=== PATIENT | female | born 1985 | race Caucasian/White ===

== ENCOUNTER 2018-01-02 15:48 | Emergency (ER) | payer OTHER ==
[2018-01-02 15:59] VITALS: BP 106/58; PULSE 130; BMI 22.1
[2018-01-02] MEDS ORDERED: ACETAMINOPHEN 325 MG TABLET (FP) PO ONE (15:59)
[2018-01-02] MEDS ORDERED: IBUPROFEN 400 MG TABLET (FP) PO ONE ×2 (17:29→17:43)
--- NOTE | 2018-01-02 17:30 | PDOC ---
History of Present Illness - General Chief Complaint: Respiratory Stated Complaint: COUGHING, BODYACHES Time Seen by Provider: 01/02/18 17:21 History Source: Patient Exam Limitations: No Limitations - History of Present Illness Initial Comments: 01/02/18 17:27 Patient is a [32-year-old female, no significant medical history currently on no medication presents with fever, headache, bodyaches since Wednesday. Has only attempted to take TheraFlu. No vomiting, no diarrhea no chest pain or shortness of breath.] Past Medical History: [Denies]. Allergies: No known allergies Medications: [None] Family History: Non-contributory Social History: Denies smoking, alcohol use, or IVDU Review of Systems GENERAL/CONSTITUTIONAL: [Fever, bodyaches. No weakness. No weight change.] HEAD, EYES, EARS, NOSE AND THROAT: [No change in vision. No ear pain or discharge. No sore throat. ] CARDIOVASCULAR: [No chest pain or shortness of breath.] RESPIRATORY: [Nonproductive cough, no wheezing, or hemoptysis.] GASTROINTESTINAL: [No nausea, vomiting, diarrhea or constipation. No rectal bleeding.] GENITOURINARY: [No dysuria, frequency, or change in urination.] MUSCULOSKELETAL: [No joint or muscle swelling or pain. No neck or back pain.] SKIN AND BREASTS: [No rash or easy bruising.] NEUROLOGIC: [Frontal headache, vertigo, loss of consciousness, or loss of sensation.] PSYCHIATRIC: [No depression or anxiety.] ENDOCRINE: [No increased thirst. No abnormal weight change.] HEMATOLOGIC/LYMPHATIC: [No anemia, easy bleeding, or history of blood clots.] ALLERGIC/IMMUNOLOGIC: [No hives or skin allergy. No latex allergy.] Physical Exam: GENERAL: [The patient is awake, alert, and fully oriented, in no acute distress. ] HEAD: [Normal with no signs of trauma.] EYES: [Pupils equal, round and reactive to light, extraocular movements intact, sclera anicteric, conjunctiva clear.] ENT: [Ears normal, nares patent, oropharynx clear without exudates. Moist mucous membranes. No uvula deviation] NECK: [Normal range of motion, supple without lymphadenopathy, JVD, or masses.] LUNGS: [Breath sounds equal, clear to auscultation bilaterally. No wheezes, and no crackles.] HEART: [Regular rate and rhythm, normal S1 and S2 without murmur, rub or gallop. ] ABDOMEN: [Soft, nontender, normoactive bowel sounds. No guarding, no rebound. No masses. No bruising or abrasions] MUSCULOSKELETAL: [Normal range of motion, no edema. No clubbing or cyanosis. No cords, erythema, or tenderness. No CVA Tenderness with fist.] NEUROLOGICAL: [Cranial nerves II through XII grossly intact. Normal speech, normal gait.] SKIN: [Warm, Dry, normal turgor, no rashes or lesions noted.] Past History - Past Medical History Allergies/Adverse Reactions: Allergies Allergy/AdvReac Type Severity Reaction Status Date / Time No Known Allergies Allergy Verified 01/02/18 15:55 Home Medications: Ambulatory Orders Oseltamivir Phosphate [Tamiflu -] 75 mg PO BID #10 capsule 01/02/18 Asthma: No Cancer: No Cardiac Disorders: No COPD: No Diabetes: No HTN: No Seizures: No Thyroid Disease: No - Immunization History Immunization Up to Date: Yes - Suicide/Smoking/Psychosocial Hx Smoking History: Never smoked Have you smoked in the past 12 months: No Hx Alcohol Use: No Drug/Substance Use Hx: No Substance Use Type: None Hx Substance Use Treatment: No *Physical Exam - Vital Signs Last Vital Signs Temp Pulse Resp BP Pulse Ox 103.0 F H 130 H 24 106/58 100 01/02/18 15:50 01/02/18 15:50 01/02/18 15:50 01/02/18 15:50 01/02/18 15:50 ED Treatment Course - Medications Given in the ED: ED Medications Discontinued Medications Generic Name Dose Route Start Last Admin Trade Name Newq PRN Reason Stop Dose Admin Acetaminophen 975 mg 01/02/18 15:59 01/02/18 16:01 Tylenol - PO 01/02/18 16:00 975 mg NOW ONE Administration Medical Decision Making - Medical Decision Making 01/02/18 17:29 A/P: Patient with influenza-type illness, rapid influenza sent her Tylenol was given in triage. 01/02/18 18:03 Patient is influenza A positive we'll discharge on Tamiflu, Motrin as needed for fever, increase fluids to prevent dehydration I discussed the physical exam findings, ancillary test results and final diagnoses with the patient. I answered all of the patient's questions. The patient was satisfied with the care received and felt comfortable with the discharge plan and treatment plan. The patient will call to arrange follow-up and will return to the Emergency Department with any new, persistent or worsening symptoms. *DC/Admit/Observation/Transfer Diagnosis at time of Disposition: Influenza A - Discharge Dispostion Disposition: HOME Condition at time of disposition: Stable Admit: No - Prescriptions Prescriptions: Oseltamivir Phosphate [Tamiflu -] 75 mg PO BID #10 capsule - Referrals Referrals: John Marcus MD [Staff Physician] - - Patient Instructions Printed Discharge Instructions: Influenza Additional Instructions: You have been diagnosed with influenza a. Please take the medication as directed. Please take Motrin or Tylenol as needed for fever. Make sure to stay well-hydrated. Drink a lot of water or Gatorade or Pedialyte. You are contagious. Please attempt to avoid contact of multiple individuals as this will cause the infection to spread. Return to emergency room if shortness of breath, wheezing, fever greater than 101, chest pain, or fainting occurs. - Post Discharge Activity Forms/Work/School Notes: Back to Work
[2018-01-02 17:50] VITALS: TEMP 98.8
== END 2018-01-02 18:11 | disposition home or self-care (01) ==
LOC: JERFT 15:48
DX: J09.X2 Influenza due to identified novel influenza A virus with other respiratory manifestations (principal)
CPT/HCPCS: 87804; 99281-25

== ENCOUNTER 2018-01-07 17:10 | Emergency (ER) | payer OTHER ==
[2018-01-07 17:16] VITALS: TEMP 98.8; BMI 22.1
--- NOTE | 2018-01-07 17:19 | PDOC ---
Rapid Medical Evaluation Chief Complaint: Cold Symptoms Time Seen by Provider: 01/07/18 17:14 Medical Evaluation: Allergies Allergy/AdvReac Type Severity Reaction Status Date / Time No Known Allergies Allergy Verified 01/07/18 17:11 I have performed a brief in-person evaluation of this patient. The patient presents with a chief complaint of: flu like symptoms. Patient was seen here 2/, diagnosed with flu, completed tamiflu. She states she feels just as bad with continued cough, sore throat, [place] and body aches. Nasal congestion. Runny nose of dark green mucous. Pertinent physical exam findings: Tenderness to palpation of sinuses. Lungs CTA. hoarse voice. dry cough. Patient is ill appearing. I have ordered the following: nothing The patient will proceed to the ED for further evaluation.
[2018-01-07] MEDS ORDERED: IBUPROFEN 400 MG TABLET (FP) PO ONE ×2 (19:35→19:50)
--- NOTE | 2018-01-07 19:44 | PDOC ---
History of Present Illness <Eliud Saini - Last Filed: 01/07/18 20:29> - General History Source: Patient Exam Limitations: No Limitations - History of Present Illness Initial Comments: 01/07/18 20:16 Patient is a 32 year old female with no significant past medical history who presents to the ED with complaints of flu like symptoms that began 5 days ago. Patient reports experiencing flu like symptoms 5 days ago suddenly, and was seen in the ED for further evaluation. She reports being prescribed tamiflu and was discharged home. Patient reports finishing tamiflu prescription last night and states I feel worse than when i started the medicine. She reports experiencing persistent cough/congestion and general body aches. Patient reports taking tylenol and motrin this afternoon with minimal relief, prompting her to come into the ED today for secondary evaluation. She reports her experiencing similar symptoms, as well as both of her kids experiencing coughing symptoms. Denies chest pain, Sob, hemoptysis, leg swelling, kaur, Denies out of state travelling. Denies diarrhea, constipation, dysuria, hematuria. Denies any other symptoms. Allergies: None Social history: Lives with and children. No smoking. No alcohol. No illicit drugs. Surgical history: None PMD: Dr. Susie Garcia <Jomar Licona - Last Filed: 01/08/18 07:00> - General Chief Complaint: Cold Symptoms Stated Complaint: COLD SYMPTOMS Time Seen by Provider: 01/07/18 17:14 Past History - Past Medical History Asthma: No Cancer: No Cardiac Disorders: No COPD: No Diabetes: No HTN: No Seizures: No Thyroid Disease: No - Immunization History Immunization Up to Date: Yes - Suicide/Smoking/Psychosocial Hx Smoking History: Never smoked Have you smoked in the past 12 months: No Information on smoking cessation initiated: No Hx Alcohol Use: No Drug/Substance Use Hx: No Substance Use Type: None Hx Substance Use Treatment: No <Eliud Saini - Last Filed: 01/07/18 20:29> <Jomar Licona - Last Filed: 01/08/18 07:00> - Past Medical History Allergies/Adverse Reactions: Allergies Allergy/AdvReac Type Severity Reaction Status Date / Time No Known Allergies Allergy Verified 01/07/18 17:11 Home Medications: Ambulatory Orders Oseltamivir Phosphate [Tamiflu -] 75 mg PO BID #10 capsule 01/02/18 Azithromycin [Zithromax -] 250 mg PO DAILY #6 tab 01/07/18 Benzonatate [Tessalon Pearls -] 100 mg PO TID PRN #6 capsule 01/07/18 Pseudoephedrine HCl [Sudafed 12 Hour] 120 mg PO BID PRN #8 tablet.er 01/07/18 Review of Systems - Review of Systems Able to Perform ROS?: Yes Comments:: 01/07/18 20:16 CONSTITUTIONAL: +General body aches. No reported: Fever, Chills, Diaphoresis, Generalized Weakness, Malaise, Loss of Appetite HEENT: No reported: +Nasal congestion Rhinorrhea, Throat Pain, Throat Swelling, Difficulty Swallowing, Mouth Swelling , Ear Pain, Eye Pain, Visual Changes CARDIOVASCULAR: No reported: Chest Pain, Syncope, Palpitations, Irregular Heart Rate, Lightheadedness, Peripheral Edema RESPIRATORY: +Coughing . No reported: Shortness of Breath, SOB with Exertion, Orthopnea, Wheezing, Stridor, Hemoptysis GASTROINTESTINAL: +Nausea, vomiting. No reported: Abdominal pain, Abdominal Distension, Diarrhea, Constipation, Melena, Hematochezia GENITOURINARY: No reported: Dysuria, Frequency, Urgency, Hesitancy, Flank Pain, Genital Pain MUSCULOSKELETAL: No reported: Myalgia, Arthralgia, Joint Swelling, Back pain, Neck Pain SKIN: No reported: Rash, Itching, Pallor HEMATOLOGIC/IMMUNOLOGIC: No reported: Easy Bleeding, Easy Bruising, Lymphadenopathy, Frequent infections ENDOCRINE: No reported: Unexplained Weight Gain, Unexplained Weight Loss, Heat Intolerance , Cold Intolerance NEUROLOGIC: No reported: Headache, Focal Weakness, Paresthesias, Vertigo, Lightheadedness, Unsteady Gait, Seizure, Mental Status Changes, Incontinence PSYCHIATRIC: No reported: Anxiety, Depression All Other Systems: Reviewed and Negative <Jomar Licona - Last Filed: 01/08/18 07:00> *Physical Exam - Vital Signs Last Vital Signs Temp Pulse Resp BP Pulse Ox 98.8 F 90 18 104/57 100 01/07/18 17:11 01/07/18 17:11 01/07/18 17:11 01/07/18 17:11 01/07/18 17:11 <Eliud Saini - Last Filed: 01/07/18 20:29> - Vital Signs Last Vital Signs Temp Pulse Resp BP Pulse Ox 98.8 F 90 18 104/57 100 01/07/18 17:11 01/07/18 17:11 01/07/18 17:11 01/07/18 17:11 01/07/18 17:11 - Physical Exam Comments: 01/07/18 20:16 GENERAL: The patient is awake, alert, and fully oriented, Nontoxic - in no acute distress. HEAD: Normocephalic, atraumatic. EYES: extraocular movements intact, sclera anicteric, conjunctiva clear. ENT: +Mildly injected pharynx. No exudates. Normal voice, Moist mucous membranes. NECK: Normal range of motion, No JVD LUNGS: +Mild scant rales at bases bilarterally. Breath sounds equal, clear to auscultation bilaterally. No wheezes, no rhonchi, no rales. HEART: Regular rate and rhythm, normal S1 and S2 without murmur, rub or gallop. ABDOMEN: Soft, nontender, normoactive bowel sounds. No guarding, no rebound. No masses. No CVA tenderness EXTREMITIES: Normal range of motion, no edema. No clubbing or cyanosis. No cords , erythema, or tenderness. NEUROLOGICAL: No facial asymmetry, Normal speech, normal gait. PSYCH: Normal mood, normal affect. SKIN: ho tto touch, Dry, normal turgor. <Jomar Licona - Last Filed: 01/08/18 07:00> ED Treatment Course - RADIOLOGY Radiology Studies Ordered: Category Date Time Status CHEST PA & LAT [RAD] Stat Radiology 01/07/18 19:34 Ordered <Eliud Saini - Last Filed: 01/07/18 20:29> - ADDITIONAL ORDERS Additional order review: Laboratory Results 01/07/18 19:42 Urine Color Dkyellow Urine Appearance Clear Urine pH 7.0 Ur Specific [place] 1.021 Urine Protein 1+ H Urine Glucose (UA) Negative Urine Ketones 1+ H Urine Blood 2+ H Urine Nitrite Negative Urine Bilirubin Negative Urine Urobilinogen 4.0 e.u/dl H Ur Leukocyte Esterase Negative Urine WBC (Auto) 2 Urine RBC (Auto) 1 Ur Epithelial Cells Rare Urine Mucus Few Urine HCG, Qual Negative - Medications Given in the ED: ED Medications Discontinued Medications Generic Name Dose Route Start Last Admin Trade Name Jaime PRN Reason Stop Dose Admin Ibuprofen 400 mg 01/07/18 19:35 01/07/18 19:52 Motrin - PO 01/07/18 19:36 400 mg ONCE ONE Administration <Jomar Licona - Last Filed: 01/08/18 07:00> Medical Decision Making - Medical Decision Making 01/07/18 19:39 32y F no pmhx with recent hx of flu (dx here in the ED) completed a course of tamiflu, represents today for persistence of symptoms (sore throat, body aches, cough productive of greenish sputum), nasal congestion, denies edema, kaur, cp, back pain will obtain cxr to r/o suprinfection w/ pna supportive care includint lizzy hills tessalon perles, <Eliud Saini - Last Filed: 01/07/18 20:29> *DC/Admit/Observation/Transfer - Discharge Dispostion Admit: No <Eliud Saini - Last Filed: 01/07/18 20:29> - Attestations Scribe Attestion: 01/07/18 20:17 Documentation prepared by Jomar Licona, acting as healthcare or medical for Eliud Saini MD, MD/DO. <Jomar Licona - Last Filed: 01/08/18 07:00> Diagnosis at time of Disposition: Influenza A - Discharge Dispostion Disposition: HOME Condition at time of disposition: Stable - Prescriptions Prescriptions: Azithromycin [Zithromax -] 250 mg PO DAILY #6 tab Benzonatate [Tessalon Pearls -] 100 mg PO TID PRN #6 capsule PRN Reason: Cough Pseudoephedrine HCl [Sudafed 12 Hour] 120 mg PO BID PRN #8 tablet.er PRN Reason: Nasal Congestion - Referrals Referrals: Susie Garcia MD [Primary Care Provider] - [facility] [place] [facility] [Provider Group] - 2 Days - Patient Instructions Printed Discharge Instructions: DI for Viral Upper Respiratory Infection -- Adult, DI for Influenza -- Adult Additional Instructions: Return to the emergency department immediately with ANY new, persistent or worsening symptoms. Take ibuprofen/tylenol for fever. Make sure to drink plenty of fluids. You MUST call and follow up with your doctor tomorrow for further evaluation of your symptoms. Results were discussed with you. Please make sure your doctor reviews the results of your emergency evaluation. - Post Discharge Activity
[2018-01-07 19:55] LABS: HCG,QUALITATIVE URINE NEGATIVE; URINE APPEARANCE CLEAR; URINE BILIRUBIN NEGATIVE (NEGATIVE); URINE BLOOD 2+ (NEGATIVE); URINE COLOR DKYELLOW; URINE GLUCOSE (UA) NEGATIVE (NEGATIVE); URINE KETONE 1+ (NEGATIVE); URINE LEUK ESTERASE NEGATIVE (NEGATIVE); URINE NITRITE NEGATIVE (NEGATIVE); URINE UROBILINOGEN 4.0 E.U/dl mg/dL (0.2-1.0)
[2018-01-07 19:58] LABS: URINE PROTEIN 1+ (NEGATIVE)
[2018-01-07 20:00] LABS: EPI CELLS RARE /HPF (FEW); URINE MUCUS FEW
[2018-01-07 20:35] VITALS: BP 107/62; PULSE 80
== END 2018-01-07 20:47 | disposition home or self-care (01) ==
LOC: JERFT 17:10
DX: J10.1 Influenza due to other identified influenza virus with other respiratory manifestations (principal)
CPT/HCPCS: 71046-TC-FY; 81003; 81015; 84703; 99282-25

== ENCOUNTER 2018-10-25 11:55 | Emergency (ER) | payer OTHER ==
[2018-10-25 12:00] VITALS: BP 125/65; PULSE 116; TEMP 100.6; BMI 23.9
[2018-10-25] MEDS ORDERED: IBUPROFEN 400 MG TABLET (FP) PO ONE ×2 (13:21→13:26)
--- NOTE | 2018-10-25 13:26 | PDOC ---
History of Present Illness - General Chief Complaint: Cold Symptoms Stated Complaint: BODY ACHES Time Seen by Provider: 10/25/18 13:06 History Source: Patient Exam Limitations: No Limitations - History of Present Illness Initial Comments: 10/25/18 13:23 Patient came for evaluation of 24 hours of worsened fevers, chills, general body aches sore throat pain and moist nonproductive cough. 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 Timing/Duration: reports: just prior to arrival Severity: reports: moderate Associated Symptoms: reports: cough, dizziness, earache, fever/chills, muscle aches, nasal congestion, nasal drainage, sore throat Past History - Travel Traveled outside of the country in the last 30 days: No Close contact w/someone who was outside of country & ill: No - Past Medical History Allergies/Adverse Reactions: Allergies Allergy/AdvReac Type Severity Reaction Status Date / Time No Known Allergies Allergy Verified 10/25/18 11:58 Home Medications: Ambulatory Orders Naproxen [Naprosyn -] 500 mg PO BID #30 tablet 10/25/18 Asthma: No Cancer: No Cardiac Disorders: No COPD: No Diabetes: No HTN: No Seizures: No Thyroid Disease: No - Immunization History Immunization Up to Date: Yes - Suicide/Smoking/Psychosocial Hx Smoking History: Never smoked Have you smoked in the past 12 months: No Hx Alcohol Use: No Drug/Substance Use Hx: No Substance Use Type: None Hx Substance Use Treatment: No Review of Systems - Review of Systems Able to Perform ROS?: Yes Is the patient limited Japanese proficient: Yes Constitutional: Yes: Symptoms Reported, See HPI, Malaise HEENTM: Yes: Symptoms Reported, See HPI, Nose Congestion, Throat Pain. No: Difficulty Swallowing Respiratory: Yes: Symptoms reported, See HPI, Cough Cardiac (ROS): No: Symptoms Reported ABD/GI: Yes: See HPI, Nausea. No: Symptoms Reported, Vomiting Musculoskeletal: Yes: Symptoms Reported, See HPI, Joint Pain Integumentary: Yes: See HPI. No: Symptoms Reported All Other Systems: Reviewed and Negative *Physical Exam - Vital Signs Last Vital Signs Temp Pulse Resp BP Pulse Ox 100.6 F H 116 H 16 125/65 99 10/25/18 11:58 10/25/18 11:58 10/25/18 11:58 10/25/18 11:58 10/25/18 11:58 - Physical Exam General Appearance: Yes: Nourished, Appropriately Dressed, Apparent Distress, Mild Distress HEENT: positive: MUNIRA, Normal ENT Inspection, TMs Normal, Pharynx Normal, Pharyngeal Erythema (no exudate noted, posterior sinus drainage noted), Nasal Congestion, Rhinorrhea. negative: Tonsillar Exudate, Tonsillar Erythema Neck: positive: Supple. negative: Tender, Lymphadenopathy (R), Lymphadenopathy (L) Respiratory/Chest: positive: Lungs Clear (but course, no wheezing or retractions ), Normal Breath Sounds Gastrointestinal/Abdominal: positive: Soft. negative: Tender Musculoskeletal: positive: Normal Inspection Extremity: positive: Normal Capillary Refill, Normal Inspection, Normal Range of Motion Integumentary: positive: Normal Color, Dry, Warm, Pale Neurologic: positive: telecommunicator II-XII NML intact, Fully Oriented, Alert, Normal Mood/ Affect, Normal Response, Motor Strength 5/5 Moderate Sedation - Procedure Monitoring Vital Signs: Procedure Monitoring Vital Signs Temperature 100.6 F H 10/25/18 11:58 Pulse Rate 116 H 10/25/18 11:58 Respiratory Rate 16 10/25/18 11:58 Blood Pressure 125/65 10/25/18 11:58 O2 Sat by Pulse Oximetry (%) 99 10/25/18 11:58 Progress Note - Progress Note Progress Note: Influenza testing negative. Will treat patient conservatively is no evidence of significant bacterial infection. *DC/Admit/Observation/Transfer Diagnosis at time of Disposition: Upper respiratory infection, viral - Discharge Dispostion Disposition: HOME Condition at time of disposition: Stable Decision to Admit order: No - Prescriptions Prescriptions: Naproxen [Naprosyn -] 500 mg PO BID #30 tablet - Referrals Referrals: Susie Garcia MD [Primary Care Provider] - - Patient Instructions Printed Discharge Instructions: DI for Viral Upper Respiratory Infection -- Adult Additional Instructions: Rest, drink lots of fluids: Teas, water, soups, Pedialyte Saltwater gargles Steamy showers/seem to face break up mucus Old-fashioned treatments help! Avoid contact with others until fevers and cough resolved as this is very contagious Lots of handwashing and good hygiene Continue [id number] medications for symptomatic relief Tylenol or Motrin for fever and pain Followup with private physician in one to 2 days as needed or if worsening Return to emergency department for worsened symptoms, fevers, dehydration To not participate in any activity, work, or school until fevers and cough are gone for at least one day - Post Discharge Activity Forms/Work/School Notes: Back to Work
== END 2018-10-25 14:34 | disposition home or self-care (01) ==
LOC: JERFT 11:55
DX: J06.9 Acute upper respiratory infection, unspecified (principal); B97.89 Other viral agents as the cause of diseases classified elsewhere
CPT/HCPCS: 87804; 99281-25